=== PATIENT | male | born 1990 | race Caucasian/White ===

== ENCOUNTER 2018-10-22 15:59 | Emergency (ER) | payer OTHER ==
[~2018-10-22] VITALS: Ht 175.3 cm; Wt 102.1 kg
[2018-10-22] MEDS ORDERED: ACETAMINOPHEN-1 EAC1 PO (17:10)
[2018-10-22] MEDS ORDERED: KEFLEX500 M1 PO (17:10)
[2018-10-22] MEDS ORDERED: NORCO 5-325 TA1 EAC1 PO (18:22)
[2018-10-22 18:58] VITALS: BP 127/80
== END 2018-10-22 18:59 | disposition home or self-care (01) ==
LOC: M.ERS 15:59
DX: S61.220A Laceration with foreign body of right index finger without damage to nail, initial encounter (principal); S61.222A Laceration with foreign body of right middle finger without damage to nail, initial encounter; S61.224A Laceration with foreign body of right ring finger without damage to nail, initial encounter; W26.8XXA Contact with other sharp object(s), not elsewhere classified, initial encounter; Y93.89 Activity, other specified; Y92.89 Other specified places as the place of occurrence of the external cause; Y99.8 Other external cause status

== ENCOUNTER 2018-10-30 13:30 | Emergency (ER) | payer OTHER ==
[~2018-10-30] VITALS: Ht 175.3 cm; Wt 104.3 kg
[~2018-10-30 13:30] MED LIST: ACETAMINOPHEN-1 EAC1 PO; KEFLEX500 M1 PO; NORCO 5-325 TA1 EAC1 PO
[2018-10-30 14:40] VITALS: BP 132/80
== END 2018-10-30 14:41 | disposition home or self-care (01) ==
LOC: M.ERS 13:30
DX: S61.411D Laceration without foreign body of right hand, subsequent encounter (principal); X58.XXXD Exposure to other specified factors, subsequent encounter